=== PATIENT | female | born 1970 | race Caucasian/White ===

== ENCOUNTER 2019-08-31 22:19 | Emergency (ER) | payer MEDICAID ==
[~2019-08-31] VITALS: Ht 157.5 cm; Wt 77.1 kg
[2019-08-31 22:20] VITALS: BP 162/100
--- NOTE | 2019-08-31 22:41 | NUR ---
VA'S DONE. COULD ONLY SEE EYE CHART IN PERIPHERAL. CENTRAL SIGHT IS BLACK
[2019-09-01 00:07] LABS: BASOPHILS # (AUTO) 0.06 x10^3/uL (0-0.1); BASOPHILS % (AUTO) 1 % (0-1); EOSINOPHILS # (AUTO) 0.07 x10^3/uL (0-0.4); EOSINOPHILS % (AUTO) 1 % (1-7); LYMPHOCYTES % (AUTO) 25 % (22-44); MD NO; MEAN CORPUSCULAR HEMOGLOBIN 29.7 pg (27.0-34.8); MEAN CORPUSCULAR HGB CONC 32.9 g/dL (32.4-35.8); MEAN CORPUSCULAR VOLUME 90.3 fL (80-100); MEAN PLATELET VOLUME 8.1 fL (7.4-10.4); MONOCYTES # (AUTO) 0.74 x10^3/uL (0.2-0.8); MONOCYTES % (AUTO) 9 % (2-9); NEUTROPHILS # (AUTO) 5.21 x10^3/uL (1.8-6.8); NEUTROPHILS % (AUTO) 65 % (42-75); PLATELET COUNT 239 x10^3/uL (130-400); RED BLOOD COUNT 5.04 x10^6/uL (3.82-5.3); RED CELL DISTRIBUTION WIDTH 13.4 % (9.6-15.2)
[2019-09-01 00:10] LABS: ANION GAP 6 mmol/L (5-15); CALCIUM 8.9 mg/dL (8.5-10.1); CHLORIDE 107 mmol/L (98-107); CREATININE 0.94 mg/dL (0.55-1.02)
== END 2019-09-01 00:36 | disposition home or self-care (01) ==
LOC: ED 23:29
DX: H53.133 Sudden visual loss, bilateral (principal); R51 Headache; E11.9 Type 2 diabetes mellitus without complications; I45.10 Unspecified right bundle-branch block
CPT/HCPCS: 36415; 70450; 80048; 82040; 85025; 93005; 99285

== ENCOUNTER 2020-12-03 15:25 | Inpatient (IN) | payer MEDICAID ==
[~2020-12-03] VITALS: Ht 157.5 cm; Wt 73.0 kg
--- NOTE | 2020-12-03 16:30 | NUR ---
REPORT GIVEN TO PRUDENCIO HODGE. TRANSFER OF CARE.
--- NOTE | 2020-12-03 16:36 | NUR ---
RECEIVED REPORT FROM NAVEEN MARROQUIN. PT RESTING ON ARCENIOJYOTSNA. NADN. HIGUERA.
[2020-12-03] MEDS ORDERED: KETOROLAC 30 MG/1 ML IM ONE (17:00)
[2020-12-03] MEDS ORDERED: KETOROLAC 30 MG/1 ML ONE (17:06)
--- NOTE | 2020-12-03 17:39 | NUR ---
TASK RN: PT SITTING UP IN HNAY HERNANDEZ NOTED. DENIES NEEDS, VSS. ERP AT BEDSIDE TO DISCUSS POC.
[2020-12-03 17:51] LABS: TROPONIN I 0.269 ng/mL (0.000-0.045)
[2020-12-03] MEDS ORDERED: ASPIRIN 81 MG TABLET CHEW PO ONE (18:00)
[2020-12-03] MEDS ORDERED: ASPIRIN 81 MG TABLET CHEW ONE (18:12)
[2020-12-03 18:19] LABS: BASOPHILS % (AUTO) 0 % (0-1); EOSINOPHILS % (AUTO) 0 % (1-7); LYMPHOCYTES % (AUTO) 5 % (22-44); MEAN CORPUSCULAR HEMOGLOBIN 30.2 pg (27.0-34.8); MEAN CORPUSCULAR HGB CONC 34.4 g/dL (32.4-35.8); MEAN PLATELET VOLUME 7.9 fL (7.4-10.4); MONOCYTES % (AUTO) 2 % (2-9); NEUTROPHILS % (AUTO) 93 % (42-75); PLATELET COUNT 348 x10^3/uL (130-400); RED BLOOD COUNT 5.12 x10^6/uL (3.82-5.3); RED CELL DISTRIBUTION WIDTH 12.5 % (9.6-15.2)
[2020-12-03] MEDS ORDERED: ENOXAPARIN 80 MG/0.8 ML ONE (18:23)
[2020-12-03 18:26] LABS: ALBUMIN 2.5 g/dL (3.4-5.0); ANION GAP 7 mmol/L (5-15); CALCIUM 8.8 mg/dL (8.5-10.1); CHLORIDE 96 mmol/L (98-107); CREATININE 0.71 mg/dL (0.55-1.02)
--- NOTE | 2020-12-03 18:28 | NUR ---
PT RESTING ON GURNEY. NADN. HIGUERA.
[2020-12-03] MEDS ORDERED: ENOXAPARIN 80 MG/0.8 ML SQ ONE (18:30)
--- NOTE | 2020-12-03 19:01 | NUR ---
PT CHART REVIEWED AND PLACED FOR RECHECK.
[2020-12-03] MEDS ORDERED: NITROGLYCERIN SINGLE TAB 0.4 MG SL ONE (19:04)
--- NOTE | 2020-12-03 19:07 | NUR ---
TASK RN: PT MEDICATED PER VERBAL ORDER WITH NITRO SL FOR 6/10 CP. REPEAT EKG COMPLETED PRIOR TO ADMIN. ERP AT BEDSIDE. PT UPDATED TO POC. VSS, BP 143/89.
[2020-12-03] MEDS ORDERED: NITROGLYCERIN OINT 2%, 1GM TP ONE ×2 (19:12→19:30)
--- NOTE | 2020-12-03 19:15 | NUR ---
IMPROVED CP WITH NITRO, 08/12. ERP AWARE. NITRO PASTE PLACED. PT REPORTS "ALLERGY" TO MORPHINE IS VOMITING. DESPITE EDUCATION REGARDING ADVERSE REACTIONS AND AVAILABLE NAUSEA MEDICATIONS, PT REFUSING AT THIS TIME. PT MADE AWARE TO NOTIFY RN/ERP WITH WORSENING PAIN.
[2020-12-03] MEDS ORDERED: DAPA10TA PO (19:27)
[2020-12-03] MEDS ORDERED: MAGNESIUM (19:27)
[2020-12-03] MEDS ORDERED: [UNRECOGNIZED DRUG - OTHER] (19:27)
[2020-12-03] MEDS ORDERED: ZINC (19:27)
[2020-12-03] MEDS ORDERED: NITROGLYCERIN SINGLE TAB 0.4 MG SL PRN (19:30)
[2020-12-03] MEDS ORDERED: ATORVASTATIN 80 MG TABLET PO STA (19:32)
--- NOTE | 2020-12-03 19:36 | NUR ---
[facility] CALLED AT 1919. AWAITING FOR [facility] F[facility]ER TO BE READY FOR TRANSPORT.
--- NOTE | 2020-12-03 19:38 | NUR ---
CARDS PG@[id number] [facility] PG@[phone] CALL (@192) FROM ENGINEERING INSPECTOR SAID [employer] SHIPPING CLERK WAS ON THE WAY
[2020-12-03] MEDS ORDERED: TICAGRELOR 90 MG TABLET ONE (20:00)
[2020-12-03] MEDS ORDERED: MIDAZOLAM 1 MG/ML, 5ML ONE (20:00)
[2020-12-03] MEDS ORDERED: LIDOCAINE 2%, 20ML ONE (20:00)
[2020-12-03] MEDS ORDERED: VERAPAMIL 2.5 MG/ML, 2ML ONE (20:00)
[2020-12-03] MEDS ORDERED: BIVALIRUDIN 250 MG ONE (20:00)
[2020-12-03] MEDS ORDERED: ATORVASTATIN 80 MG TABLET PO ONE (20:00)
[2020-12-03] MEDS ORDERED: NITROGLYCERIN 5 MG/ML, 10ML ONE (20:00)
[2020-12-03] MEDS ORDERED: FENTANYL PF 100 MCG/2ML ONE (20:00)
[2020-12-03] MEDS ORDERED: HEPARIN 1,000 UNITS/ML, 10ML ONE (20:00)
[2020-12-03 23:25] LABS: HCT (SEDRATE) 40.9 % (34.6-47.8)
[2020-12-03] MEDS ORDERED: KETOROLAC 30 MG/1 ML IVPush ONE (23:30)
[2020-12-04 00:37] VITALS: BP 134/84
[2020-12-04] MEDS: ACETAMINOPHEN 500 MG TABLET PO PRN (00:42)
[2020-12-04] MEDS: INSULIN LISPRO 100 UNITS/ML, PEN SQ-INSULIN SCH ×5 (00:45→21:51)
[2020-12-04 05:28] LABS: CHOL/HDL RATIO 6.2; CHOLESTEROL, TOTAL 167 mg/dL (140-239); HDL CHOL % 16 % (28-40); HDL CHOLESTEROL (DIRECT) 27 mg/dL (40-60); TRIGLYCERIDES 562 mg/dL (50-200)
[2020-12-04] MEDS ORDERED: INSULIN LISPRO 100 UNITS/ML, PEN SQ-INSULIN SCH (07:00)
[2020-12-04 07:11] VITALS: BP 164/95
[2020-12-04] MEDS: COLCHICINE 0.6 MG CAPSULE PO SCH ×2 (11:51→21:50)
[2020-12-04 12:59] VITALS: BP 138/86
[2020-12-04 20:13] VITALS: BP 159/82
[2020-12-05 00:56] VITALS: BP 159/85
[2020-12-05 07:20] VITALS: BP 148/87
[2020-12-05] MEDS: ACETAMINOPHEN 500 MG TABLET PO PRN (08:44)
[2020-12-05] MEDS: COLCHICINE 0.6 MG CAPSULE PO SCH (08:44)
[2020-12-05] MEDS: INSULIN LISPRO 100 UNITS/ML, PEN SQ-INSULIN SCH ×2 (08:45→11:00)
[2020-12-05] MEDS ORDERED: ATOR40TA78 PO (09:37)
[2020-12-05] MEDS ORDERED: ASPI81TA45 PO (09:37)
[2020-12-05] MEDS ORDERED: COLC0.6C3 PO (09:37)
[2020-12-05] MEDS ORDERED: metFORMIN 500 MG TABLET PO SCH (17:00)
== END 2020-12-05 12:05 | disposition home or self-care (01) | DRG 281 ==
LOC: ED 15:55 → EDIP 19:48 → OBSVTOIN 19:48 → UNDOADMOB 21:22 → INTOOBSV 21:22 → EDIP 21:22 → 5SO 21:36 → EDIP 21:36
PROVIDERS: ADMIT Internal Medicine Cardiovascular Disease; ATTEND Internal Medicine Cardiovascular Disease
PROC: 4A023N7 Measurement of Cardiac Sampling and Pressure, Left Heart, Percutaneous Approach (ICD-10-PCS; principal; 2020-12-03)
PROC: B2111ZZ Fluoroscopy of Multiple Coronary Arteries using Low Osmolar Contrast (ICD-10-PCS; 2020-12-03)
PROC: B2151ZZ Fluoroscopy of Left Heart using Low Osmolar Contrast (ICD-10-PCS; 2020-12-03)
DX: I21.19 ST elevation (STEMI) myocardial infarction involving other coronary artery of inferior wall (principal); E87.1 Hypo-osmolality and hyponatremia; I31.9 Disease of pericardium, unspecified; I45.10 Unspecified right bundle-branch block; I51.4 Myocarditis, unspecified; E11.9 Type 2 diabetes mellitus without complications; E66.9 Obesity, unspecified; E78.1 Pure hyperglyceridemia; F32.9 Major depressive disorder, single episode, unspecified; Z87.891 Personal history of nicotine dependence; Z86.16 Personal history of COVID-19; Z79.899 Other long term (current) drug therapy; Z88.8 Allergy status to other drugs, medicaments and biological substances
CPT/HCPCS: 36415; 71045; 80048; 80061; 82040; 82962; 83036; 84484; 85025; 85651; 93005; 93306; 93458; 99156; C1769; C1894; J1644; J1650; J1815; J1885; J2250; J3010; J3490; Q9967; 96372; 99285; G0378; J0583